=== PATIENT | female | born 1930 | race Caucasian/White ===

== ENCOUNTER 2019-03-18 13:14 | Emergency (ER) | payer MEDICARE, MEDICAID ==
--- NOTE | 2019-03-18 14:11 | RAD ---
Exam:Right hip 2 views HISTORY: Pain. Injury. Patient fell 1 day ago. COMPARISON: 01/14/2006 FINDINGS: Intact sacrum and bony pelvis are intact Contour of the femoral head is maintained. No fracture. Moderate loss of hip joint space height. IMPRESSION: 1. No fracture 2. Worsening degenerative change
--- NOTE | 2019-03-18 14:21 | RAD ---
XR Hand Lt 3 View STANDARD HISTORY: Injury, left hand pain FINDINGS: Degenerative changes are present. There is a mildly angulated fracture involving the neck of the left fifth metacarpal.
--- NOTE | 2019-03-18 14:23 | RAD ---
Exam: XR Knee Rt 4 View STANDARD HISTORY: Right knee pain after a fall one day ago. Right knee injury. COMPARISON: 05/18/2004. FINDINGS: Again noted are postoperative changes related to right total knee prosthesis. No hardware complicatio n is seen. No fracture or dislocation is identified. 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 There is a suprapatellar right knee joint effusion present. IMPRESSION: 1. Right suprapatellar knee joint effusion without evidence of an acute osseous abnormality. 2. Right total knee prosthesis.
== END 2019-03-18 15:00 | disposition home or self-care (01) ==
LOC: MADERS 13:14
DX: S62.337A Displaced fracture of neck of fifth metacarpal bone, left hand, initial encounter for closed fracture (principal); S83.91XA Sprain of unspecified site of right knee, initial encounter; I10 Essential (primary) hypertension; Z79.899 Other long term (current) drug therapy; W19.XXXA Unspecified fall, initial encounter
CPT/HCPCS: 26600